=== PATIENT | female | born 1975 | race African-American/Black ===

== ENCOUNTER 2021-08-12 12:27 | Emergency (ER) | payer MEDICAID ==
[~2021-08-12] VITALS: Ht 157.5 cm; Wt 91.0 kg
[2021-08-12] MEDS ORDERED: TETRACAINE 0.5% OPHTH DROPS 4ML BOTHEYE ONE (12:45)
[2021-08-12] MEDS ORDERED: FAMOTIDINE 20MG/2ML VIAL IV ONE (13:00)
[2021-08-12] MEDS ORDERED: DIPHENHYDRAMINE 50MG/ML VIAL IV ONE (13:00)
[2021-08-12] MEDS ORDERED: METHYLPREDNISOLONE SOD SUCC 125 MG/2 ML VIAL IV ONE (13:00)
[2021-08-12 13:37] LABS: BASOPHILS % 0.6 % (0.0-2.0); EOSINOPHILS % 1.9 % (0.0-5.0); HEMOGLOBIN. 11.9 g/dL (12.0-16.0); LYMPHOCYTES % 30.4 % (20.0-50.0); MEAN CORPUSCULAR HEMOGLOBIN 25.7 pg (28.0-32.0); MEAN CORPUSCULAR VOLUME 79.8 fL (81.0-99.0); MEAN PLATELET VOLUME 8.5 fl (7.4-10.4); MONOCYTES % 9.8 % (2.0-8.0); NEUTROPHILS % 57.3 % (40.0-76.0); PLATELET 293 x1000/uL (130-400); RED BLOOD CELL COUNT 4.63 mill/uL (4.2-5.4); RED CELL DISTRIBUTION WIDTH 15.6 % (11.6-14.6)
[2021-08-12 13:44] LABS: CHLORIDE 108 mEq/L (98-107)
[2021-08-12 13:56] LABS: CLARITY URINE CLEAR (CLEAR); COLOR URINE YELLOW (YELLOW); KETONES URINE NEGATIVE (NEGATIVE); LEUKOCYTE ESTERASE URINE NEGATIVE (NEGATIVE); NITRITE URINE NEGATIVE (NEGATIVE); OCCULT BLOOD URINE NEGATIVE (NEGATIVE); PROTEIN URINE NEGATIVE (NEGATIVE); SPECIFIC GRAVITY URINE 1.024 (1.005-1.030); UROBILINOGEN URINE 0.2 E.U./dL (0.2-1.0)
[2021-08-12] MEDS ORDERED: CLONIDINE 0.1MG TABLET PO ONE (14:00)
[2021-08-12] MEDS ORDERED: IOHEXOL-350 100 ML BOTTLE ONE (15:11)
[2021-08-12] MEDS ORDERED: CLIN-116 MT (15:12)
[2021-08-12] MEDS ORDERED: P20 MT (15:12)
[2021-08-12] MEDS ORDERED: DIPH25CA83 MT (15:12)
[2021-08-12 15:20] VITALS: BP 184/89
== END 2021-08-12 15:40 | disposition home or self-care (01) ==
LOC: ER 13:19
DX: T78.40XA Allergy, unspecified, initial encounter (principal); F12.10 Cannabis abuse, uncomplicated; I10 Essential (primary) hypertension; Z91.14 Patient's other noncompliance with medication regimen; Z90.49 Acquired absence of other specified parts of digestive tract; X58.XXXA Exposure to other specified factors, initial encounter
CPT/HCPCS: 36415; 70450; 70496; 70498; 71045; 80053; 81003; 82962; 83880; 84484; 85025; 93005; 96374; 96375; 99285; J1200; J2930; J3490; Q9967

== ENCOUNTER 2021-08-22 07:11 | Emergency (ER) | payer MEDICAID ==
[~2021-08-22] VITALS: Ht 157.5 cm; Wt 82.0 kg
[~2021-08-22 07:11] MED LIST: CLIN-116 MT; DIPH25CA83 MT; P20 MT
[2021-08-22 07:28] VITALS: BP 199/127
[2021-08-22] MEDS ORDERED: FLUORESCEIN SODIUM 1MG/STRIP BOTHEYE ONE (08:15)
[2021-08-22] MEDS ORDERED: TETRACAINE 0.5% OPHTH DROPS 4ML BOTHEYE ONE (08:30)
[2021-08-22] MEDS ORDERED: TOBRAMYCIN 0.3% OPHTH DROPS 5ML BOTHEYE STA (08:47)
[2021-08-22] MEDS ORDERED: TOBR5DRO EACHEYE (09:12)
== END 2021-08-22 10:00 | disposition home or self-care (01) ==
LOC: ER 07:11
DX: S05.02XA Injury of conjunctiva and corneal abrasion without foreign body, left eye, initial encounter (principal); S05.01XA Injury of conjunctiva and corneal abrasion without foreign body, right eye, initial encounter; I10 Essential (primary) hypertension; F12.10 Cannabis abuse, uncomplicated; Z90.49 Acquired absence of other specified parts of digestive tract; X58.XXXA Exposure to other specified factors, initial encounter; Y93.89 Activity, other specified; Y92.018 Other place in single-family (private) house as the place of occurrence of the external cause
CPT/HCPCS: 99283; C1893

== ENCOUNTER 2022-05-21 02:24 | Emergency (ER) | payer MEDICAID, OTHER ==
[~2022-05-21] VITALS: Ht 167.6 cm; Wt 110.0 kg
[~2022-05-21 02:24] MED LIST changes: +TOBR5DRO EACHEYE
[2022-05-21 03:25] LABS: BASOPHILS % 0.6 % (0.0-2.0); EOSINOPHILS % 3.3 % (0.0-5.0); HEMATOCRIT. 36.5 % (36.0-48.0); LYMPHOCYTES % 31.6 % (20.0-50.0); MEAN CORPUSCULAR HEMOGLOBIN 26.7 pg (28.0-32.0); MEAN CORPUSCULAR VOLUME 81.5 fL (81.0-99.0); MEAN PLATELET VOLUME 8.1 fl (7.4-10.4); NEUTROPHILS % 55.5 % (40.0-76.0); PLATELET 268 x1000/uL (130-400); RED BLOOD CELL COUNT 4.48 mill/uL (4.2-5.4); RED CELL DISTRIBUTION WIDTH 16.4 % (11.6-14.6)
[2022-05-21 03:46] LABS: CHLORIDE 105 mEq/L (98-107)
[2022-05-21 05:00] VITALS: BP 158/88
[2022-05-21] MEDS ORDERED: ACET-2708 PO (05:43)
[2022-05-21] MEDS ORDERED: OXYM30SP26 BOTHNSTRLS (05:43)
== END 2022-05-21 06:17 | disposition home or self-care (01) ==
LOC: ER 02:24
DX: R04.0 Epistaxis (principal); I10 Essential (primary) hypertension; Z90.49 Acquired absence of other specified parts of digestive tract; F12.10 Cannabis abuse, uncomplicated
CPT/HCPCS: 36415; 80048; 85025; 99283; Z7610

== ENCOUNTER 2022-06-23 18:14 | Emergency (ER) | payer MEDICAID, OTHER ==
[~2022-06-23] VITALS: Ht 165.1 cm; Wt 73.0 kg
[~2022-06-23 18:14] MED LIST changes: +ACET-2708 PO; +OXYM30SP26 BOTHNSTRLS
[2022-06-23 18:19] VITALS: BP 187/103
== END 2022-06-24 00:41 | disposition left against medical advice (07) ==
LOC: ER 18:14
DX: Z53.21 Procedure and treatment not carried out due to patient leaving prior to being seen by health care provider (principal); S51.811A Laceration without foreign body of right forearm, initial encounter; I10 Essential (primary) hypertension; W54.0XXA Bitten by dog, initial encounter; Y93.9 Activity, unspecified; Y92.9 Unspecified place or not applicable; Z90.49 Acquired absence of other specified parts of digestive tract